=== PATIENT | male | born 1935 | race Caucasian/White ===

== ENCOUNTER → 2023-12-11 10:47 | Outpatient (REF) | payer MEDICARE, BC, SELFPAY ==
[2023-12-11 13:26] LABS: PSA, Total - Diagnostic 1.93 ng/ml (0.0-4.0)
== END ==
LOC: HWLAB 10:47
PROVIDERS: ATTENDING PHYSICIAN Specialist; FAMILY PHYSICIAN Internal Medicine; REFERRING PHYSICIAN Family Medicine
DX: C61 Malignant neoplasm of prostate (principal)
CPT/HCPCS: 36415; 84153

== ENCOUNTER 2023-12-24 18:58 | Emergency (ER) | payer MEDICARE, BC, SELFPAY ==
[2023-12-24 19:01] VITALS: BP 130/70
[2023-12-24 19:33] VITALS: BP 143/62
[2023-12-24 19:40] VITALS: BMI 28.5
[2023-12-24 19:47] LABS: % Basophils 0.4 % (0-2); % Eosinophils 1.1 % (0-6); % Immature Granulocytes 0.2 % (0-0.5); % Lymphocytes 14.4 % (20.5-51.1); % Monocytes 7.6 % (1.7-9.3); % Neutrophils 76.3 % (42.2-75.2); Absolute Eosinophils 0.1 10^3/uL (0-0.7); Absolute Lymphocytes 1.4 10^3/uL (1.2-3.4); Absolute Monocytes 0.8 10^3/uL (0.1-0.6); Absolute Neutrophils 7.6 10^3/uL (1.4-6.5); Hematocrit 37.1 % (39.0-52.0); Hemoglobin 12.9 g/dL (13.0-18.0); Mean Corp Hgb Conc. 34.8 g/dL (33.0-37.0); Mean Corpuscular Hgb 32.3 pg (27.0-31.0); Mean Corpuscular Volume 92.8 fL (80.0-94.0); Mean Platelet Volume 10.4 fL (7.4-10.4); Nucleated Red Blood Cells % 0 % (-); Platelet Count 223 10^3/uL (130-400); Red Cell Dist. Width 13.1 % (11.5-14.5); White Blood Cell Count 9.9 10^3/uL (4.8-10.8)
[2023-12-24 19:58] LABS: ALT (SGPT) 29 U/L (0-50); AST (SGOT) 35 U/L (17-59); Albumin 4.2 g/dl (3.5-5.0); Alkaline Phosphatase 109 U/L (38-126); Blood Urea Nitrogen 19 mg/dl (9-20); Calcium 9.3 mg/dl (8.4-10.2); Carbon Dioxide 23 mmol/L (22-30); Chloride 107 mmol/L (98-107); Estimated Creatinine Clearance 68 ml/min; Glucose 143 mg/dl (70-99); Potassium 4.4 mmol/L (3.5-5.1); Sodium 138 mmol/L (135-145); Total Bilirubin 0.5 mg/dl (0.2-1.3); Total Protein 7.3 g/dl (6.3-8.2); eGFR > 60.00
--- NOTE | 2023-12-24 19:59 | ED.GENMED ---
History of Present Illness
General
Chief Complaint: Weakness
Source: patient
Time Seen by Provider: 12/24/23 19:40
Travel History
Have you had any contact with someone who has COVID-19?: No
Do you have any symptoms of coronavirus? Fever > 100 degrees, chills, cough, shortness of breath, sore throat, loss of taste or smell, muscle aches, or headache?: No
History of Present Illness
History of Present Illness:
88-year-old male presents to the emergency room complaining of right knee and posterior leg discomfort. Patient was in his normal state of health up until (4 days ago). The day prior the patient did go to physical therapy. He was
receiving physical therapy due to some issues with balance. The next day began having pain in the posterior right knee particularly on the lateral aspect. He indicates that the most of the pain was over hamstring tendon. Pain increased over the
next 2 days. He was taking Tylenol for the discomfort. Today the patient noted the pain had improved but thought he was not able to put his full weight on the leg. Patient denies any numbness or tingling. He denies any right arm symptoms. No
headache. Patient does not take any oral anticoagulants but does take 81 mg of aspirin a day. He does not typically walk with a walker but had been today.
Past History
Past History
ED Past Medical History: CAD, Cancer (Prostate CA with radiation), HTN, Hypercholesterolemia and Other (Prostate CA with radiation, Hemorroids, kidney stones)
ED Past Surgical History: Appendectomy, Cardiac (Stent) and Urological (Lithotripsy)
Social History
Tobacco: Former smoker
Alcohol: Daily (Wine One glass)
Personal:
Living: with family
Employment: Retired
Family History
Family History: Hypertension
Phy Exam
Physical Exam
Physical Exam:
General: Awake, Alert, Oriented X3. No acute distress.
Vitals: unremarkable
Head: Atraumatic
Eyes: Pupils equal, EOMI
Throat: Airway intact, no exudates
Neck: Trachea midline
Lungs: Clear and equal b/l
Heart: Regular rate, no murmurs
Abd: Soft, Nontender, No pulsatile mass
Neuro: Cranial nerves intact, muscle strength equal bilaterally, cerebellar exam normal
Skin: Warm, dry, no rash
Extremities: pulses equal b/l, no edema.
Right knee has no effusion. There is no tenderness over the patella or the knee itself. Patient does have tenderness palpation over the lateral hamstring insertion. He is able extend his fully straight leg at the hip. The patella
tendon is intact.
Course
Orders/Labs/Results
Orders:
Orders
12/24/23 19:42
CMP [Comprehensive Metabolic Panel] Urgent
Complete Blood Count/With Diff Urgent
12/24/23 19:58
Knee, Right 4 or More Views [CR Knee- Right 4 Or More View*] Urgent
Comment:
Reason For Exam: r knee pain
Abnormal Lab Results
12/24/23
19:42
RBC 4.00 L 10^6/uL
(4.70-6.10)
Hgb 12.9 L g/dL
(13.0-18.0)
Hct 37.1 L %
(39.0-52.0)
MCH 32.3 H pg
(27.0-31.0)
Absolute Neuts (auto) 7.6 H 10^3/uL
(1.4-6.5)
Absolute Monos (auto) 0.8 H 10^3/uL
(0.1-0.6)
Neutrophils % 76.3 H %
(42.2-75.2)
Lymphocytes % 14.4 L %
(20.5-51.1)
Glucose 143 H mg/dl
(70-99)
12/24/23 19:42
12/24/23 19:42
Vital Signs
Initial and Last Documented VS:
Initial Vital Signs
Temp Pulse Resp BP Pulse Ox
97.4 F 98 24 130/70 95
12/24/23 19:01 12/24/23 19:01 12/24/23 19:01 12/24/23 19:01 12/24/23 19:01
Last Documented Vital Signs
Temp Pulse Resp BP Pulse Ox
97.4 F 79 22 128/59 96
12/24/23 19:01 12/24/23 20:45 12/24/23 20:45 12/24/23 20:00 12/24/23 20:31
MDM/Problems Addressed
Differential Diagnosis Includes:
Patella fracture, patellar tendon injury, joint effusion, tendinitis
MDM/Problems Addressed:
Physical exam seems to be most consistent with a tendinitis. X-ray shows no acute abnormality. There is no effusion. Patient was able to ambulate without much assistance. We did place a David wrap around the distal thigh and knee which did seem to
help. Patient stable for discharge home. Follow-up with orthopedics as an outpatient particularly if not better in a couple days.
*Radiology
Radiology exam reviewed: preliminary read by ED provider (Personally reviewed the patient's knee films. I see no acute abnormality though he does have chronic changes of osteoarthritis)
*Pulse Oximetry
Patient hypoxic: no
*Critical Care Note
Total Time (30-74mins, 75-104mins- exclusive of procedures): Not Applicable
Patient Management
Social determinants of health affecting care: Living situation
ED Attending Note
-
Portions of this chart may have been created with voice recognition software.� Occasional wrong word or��sound alike� substitutions may have occurred due to the inherent limitations of voice recognition software.
Discharge Plan
Departure
Patient Disposition: Home (Routine Discharge)
Date of Disposition: 12/24/23
Time of Disposition: 20:43
Patient with high blood pressure during this ER visit?: No
Discharge Problem:
Tendonitis
Instructions: Tendinopathy (DC)
Prescriptions:
No Action
ezetimibe 10 MG tablet
10 mg PO DAILY
omega-3 acid ethyl esters [Lovaza] 1 GM capsule
2 tab PO DAILY
Patient Comments:
pt does not know dose
dtyaoipu-ghhssq-adsc-betn-chit 1 CAP capsule
2 cap PO DAILY
aspirin [Aspir-Low] 81 MG tablet,delayed release (DR/EC)
81 mg PO QPM
metoprolol tartrate 25 MG tablet
12.5 mg PO QPM
lisinopril 10 MG tablet
10 mg PO DAILY
polyethylene glycol 3350 17 GRAMS powder in packet
17 grams PO DAILY 0RF
meclizine 25 MG tablet
25 mg PO Q8HPRN PRN (Reason: dizziness) Qty: 20 0RF
Referrals:
Nathan Su MD [Active] -
Elder Bray DO [Family Provider] -
Interventions
Interventions:
*Risk Screen - Suicide Last Done: 12/24/23 19:01
*General Assessment Last Done: 12/24/23 19:40
*Neglect/Abuse Screening Last Done: 12/24/23 19:01
ED- Fall Risk Assessment Last Done: 12/24/23 19:40
*ED COVID-19 Vaccine History Last Done: 12/24/23 19:40
*Nursing Disposition Last Done: 12/24/23 21:04
ED- Cardiac Assessment Last Done: 12/24/23 19:40
ED- Neurological Assessment Last Done: 12/24/23 20:00
ED- Pulmonary Assessment Last Done: 12/24/23 21:04
Discharge Date and Time
Discharge Date/Time: 12/24/23 21:04
Print Language: GERMAN
[2023-12-24 20:00] VITALS: BP 128/59
--- NOTE | 2023-12-24 20:30 | EDRN ---
Patient was able to ambulate to the restroom and back without difficulty, Dr. Herndon in to update patient about being discharged with sascha wrap on knee
== END 2023-12-24 21:04 | disposition home or self-care (01) ==
LOC: EMR 18:58
PROVIDERS: EMERGENCY PHYSICIAN Emergency Medicine; FAMILY PHYSICIAN Internal Medicine
DX: M76.9 Unspecified enthesopathy, lower limb, excluding foot (principal); Z87.891 Personal history of nicotine dependence
CPT/HCPCS: 99284; 73564; 80053; 85025

== ENCOUNTER 2023-12-26 11:08 | Inpatient (IN) | payer MEDICARE, BC, SELFPAY ==
[2023-12-25] VITALS (8 sets, daily range): BP systolic 113–156; BP diastolic 58–92; PULSE 85–105; BMI 28.4; BMI 28.0
--- NOTE | 2023-12-25 15:44 | ED.MUSCINJ ---
HPI-Injury
General
Chief Complaint: Fall
Source: patient
Exam Limitations: none
Time Seen by Provider: 12/25/23 15:30
Travel History
Have you had any contact with someone who has COVID-19?: No
Do you have any symptoms of coronavirus? Fever > 100 degrees, chills, cough, shortness of breath, sore throat, loss of taste or smell, muscle aches, or headache?: No
History of Present Illness-Injury
Initial Injury comments:
88 year old male presents via EMS from home after falls. He fell yesterday after being seen here for right leg pain. He states currently today the pain is better in his leg. He fell again today. He describes today he stood up from the table went
over to the sink to get his walker then fell backwards. He feels that he is in a fog. He also has been coughing. Has a history of hypertension hyperlipidemia. Is on a baby aspirin. Per EMS his noted some garbled speech earlier today. No
other complaints at this time. Patient denies any unilateral numbness or weakness.
Past History
Past History
ED Past Medical History: CAD, Cancer (Prostate CA with radiation), HTN, Hypercholesterolemia and Other (Prostate CA with radiation, Hemorroids, kidney stones)
ED Past Surgical History: Appendectomy, Cardiac (Stent) and Urological (Lithotripsy)
Social History
Tobacco: Former smoker
Alcohol: Daily (Wine One glass)
Personal:
Living: with family
Employment: Retired
Family History
Family History: Hypertension
Phy Exam
Physical Exam
Physical Exam:
General: Well-appearing male no acute respiratory distress
HEENT: Normocephalic atraumatic
Heart: Regular rate and rhythm no murmur
Lungs: Clear no wheeze or rales
Neurologic: Alert and oriented x 3 no facial asymmetry or slurred speech. No aphasia. No drift on exam finger-nose [id number] intact. Good sensation.
Extremities: No cyanosis or edema
Skin: Warm no rash or lesion
Injury Course
Orders/Labs/Results
Orders:
Orders
12/25/23 15:37
Complete Blood Count/With Diff Urgent
Comprehensive Metabolic Panel Urgent
12/25/23 15:40
Electrocardiogram (*1) Urgent
Reason for Study: Fatigue / Weakness
EKG- Treatment ONCE
12/25/23 15:43
CT Head W/o Iv Contrast Urgent
Comment:
Reason For Exam: weakness
Orthostatic VS- Treatment ONCE
CR Chest - 2 Views Urgent
Comment:
Reason For Exam: cough
12/25/23 15:50
COVID-19 Antigen Urgent
Source: Nasal Swab
Influenza A+B Rapid Molecular Urgent
JOVANI Source: Nasal Swab
Specimen Description:
Abnormal Lab Results
12/25/23 12/25/23
15:37 15:50
RBC 3.89 L 10^6/uL
(4.70-6.10)
Hgb 12.6 L g/dL
(13.0-18.0)
Hct 36.6 L %
(39.0-52.0)
MCV 94.1 H fL
(80.0-94.0)
MCH 32.4 H pg
(27.0-31.0)
Absolute Neuts (auto) 7.0 H 10^3/uL
(1.4-6.5)
Absolute Lymphs (auto) 1.0 L 10^3/uL
(1.2-3.4)
Absolute Monos (auto) 0.9 H 10^3/uL
(0.1-0.6)
Neutrophils % 78.0 H %
(42.2-75.2)
Lymphocytes % 11.4 L %
(20.5-51.1)
Monocytes % 9.9 H %
(1.7-9.3)
BUN 21 H mg/dl
(9-20)
Glucose 143 H mg/dl
(70-99)
AST 94 H U/L
(17-59)
SARS-CoV-2 Antigen Positive A
(Negative)
12/25/23 15:37
12/25/23 15:37
MDM/Problems Addressed
Differential Diagnosis Includes:
Falls with weakness. There was reported slurred speech however there is no evidence of such on exam currently. NIH of 0 currently. Patient has noted cognitive fog with the cough. Check CT of head, COVID and flu test chest x-ray pending and labs
for also check orthostatics given his mechanism of fall today
*Critical Care Note
Total Time (30-74mins, 75-104mins- exclusive of procedures): Not Applicable
Update Note
Update Note:
CT head negative chest x-ray shows bibasilar atelectasis. Labs reviewed without clinically significant finding. He did test positive for COVID. Family now in the room. He is fallen twice in 1 day he is very weak and unsteady at home. They
cannot manage him at home. Will admit to hospital for multiple falls weakness in the setting of COVID. May benefit from physical therapy evaluation
ED Attending Note
-
Portions of this chart may have been created with voice recognition software.� Occasional wrong word or��sound alike� substitutions may have occurred due to the inherent limitations of voice recognition software.
Discharge Plan
Departure
Patient Disposition: Admit
Date of Disposition: 12/25/23
Time of Disposition: 18:27
Admit to: Telemetry
Presentation/result/management discussed w/ accepting MD/DO: Hospitalist
Discharge Problem:
Weakness, COVID-19
Prescriptions:
No Action
ezetimibe 10 MG tablet
10 mg PO DAILY
omega-3 acid ethyl esters [Lovaza] 1 GM capsule
2 tab PO DAILY
Patient Comments:
pt does not know dose
jcjgjvxa-vxqotj-ccsc-betn-chit 1 CAP capsule
2 cap PO DAILY
aspirin [Aspir-Low] 81 MG tablet,delayed release (DR/EC)
81 mg PO QPM
metoprolol tartrate 25 MG tablet
12.5 mg PO QPM
lisinopril 10 MG tablet
10 mg PO DAILY
polyethylene glycol 3350 17 GRAMS powder in packet
17 grams PO DAILY 0RF
meclizine 25 MG tablet
25 mg PO Q8HPRN PRN (Reason: dizziness) Qty: 20 0RF
Referrals:
Elder Bray DO [Family Provider] -
Interventions
Interventions:
*Risk Screen - Suicide Last Done: 12/25/23 15:42
*General Assessment Last Done: 12/25/23 15:42
*ED COVID-19 Vaccine History Last Done: 12/25/23 15:42
ED-Musculoskeletal Assessment Last Done: 12/25/23 15:45
ED- Neurological Assessment Last Done: 12/25/23 15:45
ED-Skin Assessment Last Done: 12/25/23 15:45
Discharge Date and Time
Print Language: GREENLANDIC
[2023-12-25 15:47] LABS: % Basophils 0.3 % (0-2); % Eosinophils 0.2 % (0-6); % Immature Granulocytes 0.2 % (0-0.5); % Lymphocytes 11.4 % (20.5-51.1); % Monocytes 9.9 % (1.7-9.3); Absolute Monocytes 0.9 10^3/uL (0.1-0.6); Hematocrit 36.6 % (39.0-52.0); Hemoglobin 12.6 g/dL (13.0-18.0); Mean Corp Hgb Conc. 34.4 g/dL (33.0-37.0); Mean Corpuscular Hgb 32.4 pg (27.0-31.0); Mean Corpuscular Volume 94.1 fL (80.0-94.0); Mean Platelet Volume 10.4 fL (7.4-10.4); Nucleated Red Blood Cells % 0 % (-); Platelet Count 198 10^3/uL (130-400); Red Blood Cell Count 3.89 10^6/uL (4.70-6.10); Red Cell Dist. Width 13.2 % (11.5-14.5)
[2023-12-25 16:00] LABS: Alkaline Phosphatase 107 U/L (38-126); Blood Urea Nitrogen 21 mg/dl (9-20); Calcium 9.2 mg/dl (8.4-10.2); Carbon Dioxide 22 mmol/L (22-30); Chloride 106 mmol/L (98-107); Estimated Creatinine Clearance 61 ml/min; Glucose 143 mg/dl (70-99); Potassium 3.9 mmol/L (3.5-5.1); Sodium 137 mmol/L (135-145); eGFR > 60.00
[2023-12-25 16:01] LABS: ALT (SGPT) 42 U/L (0-50); AST (SGOT) 94 U/L (17-59); Albumin 4.3 g/dl (3.5-5.0); Total Bilirubin 0.6 mg/dl (0.2-1.3); Total Protein 7.4 g/dl (6.3-8.2)
[2023-12-25 16:21] LABS: COVID-19 Antigen Positive (Negative)
--- NOTE | 2023-12-25 19:11 | HPS.HSE ---
Family Physician
-
Family Physician: Elder Bray
Chief Complaint
-
fall
History of Present Illness
88-year-old male past medical history of prostate cancer status post radiation, CAD status post stent, hypertension, hypercholesteremia, kidney stones, presenting after having falls. He fell yesterday after coming here for right leg pain. He
states today the pain is better in his right leg. He fell again today hitting his right elbow. He feels that he is in a fog and feels off balance. He has had dry cough for the past 5 days. noticed some garbled speech earlier today. No
focal weakness, numbness or tingling. No shortness of breath's, sore throat or fever or nausea or vomiting or diarrhea. No sick contacts.
Medical History
Past Medical History
Past Medical History: Reports Other (prostate cancer status post radiation, CAD status post stent, hypertension, hypercholesteremia, kidney stones)
Past Surgical History: Reports Other (Appendectomy, Cardiac (Stent) and Urological (Lithotripsy))
Social History
Tobacco: Non-smoker
Alcohol: None
Drug: None
Family History
Family History: Not pertinent
Allergies / Home Medications
Allergies reflects when Allergies were last updated in [employer].
Home Medications with original date entered in [employer]
Allergy/Medication List:
Allergies
Allergy/AdvReac Type Severity Reaction Status Date / Time
oxycodone Allergy Unknown Verified 12/24/23 19:04
Allergies
Allergy/AdvReac Type Severity Reaction Status Date / Time
oxycodone Allergy Unknown Verified 12/24/23 19:04
Home Medications
ezetimibe 10 mg tablet 10 mg PO DAILY High cholesterol 02/25/11
omega-3 acid ethyl esters 1 gram capsule (Lovaza) 2 tab PO DAILY High cholesterol 02/25/11
aspirin 81 mg tablet,delayed release (Aspir-Low) 81 mg PO QPM Blood clot prevention/tx 07/11/13
gbomrxlj-ocuptx-iaxx-betn-chit capsule 2 cap PO DAILY Supplement 07/11/13
metoprolol tartrate 25 mg tablet 12.5 mg PO QPM Heart disease/condition 09/30/15
lisinopril 10 mg tablet 10 mg PO DAILY Heart disease/condition 09/26/20
meclizine 25 mg tablet 25 mg PO Q8HPRN PRN dizziness #20 tabs 09/28/20
polyethylene glycol 3350 17 gram oral powder packet 17 grams PO DAILY 09/28/20
Review of Systems
-
History Source: Patient
A 12 point ROS was completed and negative except as noted: Yes
Constitutional: Reports No Symptoms
EENT: Reports No Symptoms
Respiratory: Reports See HPI
Cardiac: Reports No Symptoms
Abdomen/GI: Reports No Symptoms
: Reports No Symptoms
Musculoskeletal: Reports No Symptoms
Skin: Reports No Symptoms
Neurological: Reports No Symptoms
Endocrine: Reports No Symptoms
Hematologic/Lymphatic: Reports No Symptoms
Psych: Reports No Symptoms
Physical Exam
Vital Signs
Vital Signs
Temp Pulse Resp BP Pulse Ox
98.9 F 90 17 152/78 96
12/25/23 15:33 12/25/23 18:45 12/25/23 18:45 12/25/23 18:05 12/25/23 18:05
Physical Exam
General: Well Developed, Well Nourished and No Apparent Distress
HEENT: NormoCephalic, Moist mucous membranes and Atraumatic
Respiratory: Clear
Cardiac: S1/S2 and Regular Rhythm; No Murmur or Rub
GI: Soft, Non Tender, Non Distended and Normal Bowel Sounds; No Organomegaly
Rectal: Deferred by Provider
Musculoskeletal: No Clubbing, No Cyanosis and No Edema
Skin: No Rash
Neuro: Nonfocal/grossly intact
Laboratory Results
-
12/25/23 15:37
12/25/23 15:37
Laboratory Results
Total Bilirubin 0.6 mg/dl (0.2-1.3) 12/25/23 15:37
AST 94 U/L (17-59) H 12/25/23 15:37
ALT 42 U/L (0-50) 12/25/23 15:37
Alkaline Phosphatase 107 U/L (38-126) 12/25/23 15:37
Data Reviewed
-
Lab Data: Labs Reviewed by me
Old Records: Reviewed
Impression/Plan
-
IMPRESSION:
PLAN:
# Ambulatory dysfunction/falls secondary to COVID, day 5
-[address] head shows no acute abnormality
-Chest x-ray shows bibasilar atelectasis
-Patient not hypoxic
-PT/OT
Prostate cancer status post radiation
CAD status post stent
-Continue aspirin
Essential hypertension
-Continue lisinopril, metoprolol
Hypercholesterolemia
-Continue Zetia
Kidney stones
Full code
DVT prophylaxis�heparin
Regular diet
--- NOTE | 2023-12-25 20:30 | PTCARENOTE ---
Received pt from ED into 2125. Patient able to stand and pivot to the bed. COVID +. AAOx3. VSS. Pt had sascha wrap around R knee, stated it has been on since last week. Removed by this RN. Abrasion to right knee. Trace b/l LE edema. Crackles heard at
bilateral bases. See assessment. Patient was placed on bed alarm due to confusion at times. Oriented pt to room, he is resting comfortably with call pritchard in reach.
[2023-12-25] MEDS: HEPARIN 5000 UNITS SC (20:36)
[2023-12-26 05:22] LABS: % Basophils 0.3 % (0-2); % Eosinophils 0.3 % (0-6); % Immature Granulocytes 0.3 % (0-0.5); % Monocytes 12.5 % (1.7-9.3); % Neutrophils 68.6 % (42.2-75.2); Absolute Lymphocytes 1.1 10^3/uL (1.2-3.4); Absolute Monocytes 0.7 10^3/uL (0.1-0.6); Hematocrit 35.1 % (39.0-52.0); Hemoglobin 11.9 g/dL (13.0-18.0); Mean Corp Hgb Conc. 33.9 g/dL (33.0-37.0); Mean Corpuscular Hgb 31.7 pg (27.0-31.0); Mean Corpuscular Volume 93.6 fL (80.0-94.0); Mean Platelet Volume 10.7 fL (7.4-10.4); Nucleated Red Blood Cells % 0 % (-); Platelet Count 179 10^3/uL (130-400); Red Blood Cell Count 3.75 10^6/uL (4.70-6.10); Red Cell Dist. Width 13.2 % (11.5-14.5); White Blood Cell Count 5.8 10^3/uL (4.8-10.8)
[2023-12-26 06:05] LABS: ALT (SGPT) 45 U/L (0-50); AST (SGOT) 125 U/L (17-59); Albumin 3.8 g/dl (3.5-5.0); Alkaline Phosphatase 96 U/L (38-126); Blood Urea Nitrogen 17 mg/dl (9-20); Carbon Dioxide 22 mmol/L (22-30); Chloride 105 mmol/L (98-107); Estimated Creatinine Clearance 68 ml/min; Glucose 126 mg/dl (70-99); Sodium 135 mmol/L (135-145); Total Bilirubin 0.4 mg/dl (0.2-1.3); Total Protein 6.6 g/dl (6.3-8.2); eGFR > 60.00
[2023-12-26 07:00] VITALS: BP 115/58
[2023-12-26] MEDS: ZESTRIL 10 MG PO (08:36)
[2023-12-26] MEDS: HEPARIN 5000 UNITS SC ×2 (08:36→20:23)
[2023-12-26] MEDS: PAXLOVID 2X150 MG-100 MG DOSE PACK 1 DOSE PO ×2 (13:23→20:23)
--- NOTE | 2023-12-26 14:13 | CM ---
Initial assessment completed with patient and who live in a 1 story house with no basement and 1 step to enter. [employer]OST patient was independent and drove, DME in home is RW, SPC, Quad cane, raised toilet seat and shower bars, no in-home services.
No prior psychiatric hospitalizations. Pharmacy is [facility] in [place] and PCP is Dr. Elder Bray. Discharge Plan of Care: SNF. [employer] list provided to . She will discuss with daughter and choose at least 6 preferences and call
CM with choices.
--- NOTE | 2023-12-26 14:37 | W.PN.HOSP.TC ---
Today's Communication/Plan
-
Paxlovid
PT assessment
Assessment / Plan
Assessment / Plan
Impression:
Presentation with generalized fatigue, weakness and falls at home
COVID-19 positive viral syndrome
Conditions prior to admission:
Prostate cancer status postradiation treatment
CAD status post stent.
Essential hypertension
Dyslipidemia
History of nephrolithiasis.
Plan:
Generalized fatigue and weakness, falls at home
Suspect secondary to COVID-19 infection
COVID-19 positive
Reports symptoms for over 1 to 2 days.
Stable respiratory status with no evidence of sepsis or pneumonia.
Given significant symptoms and patient age, will initiate treatment with Paxlovid for 5 days
Generalized fatigue and weakness
Ambulatory dysfunction
Assess with physical therapy
History of CAD
Denies any chest pain
Continue beta-ramirez, lisinopril, aspirin, Zetia.
Dyslipidemia
On Zetia
Anticipated Discharge: 24 - 48 hours
Subjective/Interval History
-
Date of Service: December 26, 2023
Objective Data
-
Labs:
Laboratory Results
12/26/23
04:36
WBC 5.8
Hgb 11.9 L
Hct 35.1 L
Plt Count 179
Sodium 135
Potassium 4.0
Chloride 105
Carbon Dioxide 22
BUN 17
Creatinine 0.8
Glucose 126 H
Calcium 9.0
Total Bilirubin 0.4
AST 125 H
ALT 45
Alkaline Phosphatase 96
Vital Signs:
Vital Signs
Temp Pulse Resp BP Pulse Ox
98.5 F 76 20 115/58 96
12/26/23 07:00 12/26/23 08:36 12/26/23 07:00 12/26/23 08:36 12/26/23 10:32
I&O
12/25/23 12/26/23 12/27/23
06:59 06:59 06:59
Intake Total 240 / 240
Output Total 225 / 225
Balance
Physical Exam
-
General: Well Developed and No Apparent Distress
HEENT: Normocephalic, Atraumatic and Moist Mucous Membranes
Respiratory: Clear to Auscultation
Cardiac: Regular Rhythm and S1/S2; Negative Murmur, Rub or Gallop
GI: Soft, Nontender, Nondistended and Normal Bowel Sounds; Negative Organomegaly
Rectal: Deferred by Provider
Musculoskeletal: No Clubbing, No Cyanosis and No Edema
Skin: Negative Rash
Neuro: Awake, Alert, Oriented, AO x 3 and Nonfocal/Grossly Intact
[2023-12-26 15:40] VITALS: BP 127/72
[2023-12-26] MEDS: LOPRESSOR 12.5 MG PO (17:11)
[2023-12-26] MEDS: ASPIR LOW (ENTERIC COATED) 81 MG PO (17:11)
[2023-12-26] MEDS: ZETIA 10 MG PO (17:11)
[2023-12-26 23:45] VITALS: BP 124/59
[2023-12-27 00:23] VITALS: BP 109/54; BP 124/59; BP 132/60; PULSE 76; PULSE 80
[2023-12-27 07:06] VITALS: BP 122/65; BP 122/66; BP 124/63; PULSE 59; PULSE 62; PULSE 76
[2023-12-27] MEDS: PAXLOVID 2X150 MG-100 MG DOSE PACK 1 DOSE PO ×2 (08:21→21:00)
[2023-12-27] MEDS: HEPARIN 5000 UNITS SC ×2 (08:21→21:00)
[2023-12-27] MEDS: ZESTRIL 10 MG PO (08:22)
[2023-12-27 15:05] VITALS: BP 157/66
--- NOTE | 2023-12-27 15:30 | W.PN.HOSP.TC ---
Today's Communication/Plan
-
Paxlovid
Supportive care
Physical therapy assessment
Disposition efforts with likely placement to rehab.
Assessment / Plan
Assessment / Plan
Impression:
Presentation with generalized fatigue, weakness and falls at home
COVID-19 positive viral syndrome
Conditions prior to admission:
Prostate cancer status postradiation treatment
CAD status post stent.
Essential hypertension
Dyslipidemia
History of nephrolithiasis.
Plan:
Generalized fatigue and weakness, falls at home
Suspect secondary to COVID-19 infection
COVID-19 positive
Reports symptoms for over 1 to 2 days.
Stable respiratory status with no evidence of sepsis or pneumonia.
Given significant symptoms and patient age, will initiate treatment with Paxlovid for 5 days
Generalized fatigue and weakness
Ambulatory dysfunction
Assess with physical therapy
History of CAD
Denies any chest pain
Continue beta-ramirez, lisinopril, aspirin, Zetia.
Dyslipidemia
On Zetia
Anticipated Discharge: 24 - 48 hours
Subjective/Interval History
-
Date of Service: December 27, 2023
Objective Data
-
Vital Signs:
Vital Signs
Temp Pulse Resp BP Pulse Ox
97.5 F 67 16 157/66 97
12/27/23 15:05 12/27/23 15:05 12/27/23 15:05 12/27/23 15:05 12/27/23 15:05
I&O
12/26/23 12/27/23 12/28/23
06:59 06:59 06:59
Intake Total 240 / 240 1440 / 1440
Output Total 225 / 225 5 / 5
Balance 15 15 1435 / 1435
Physical Exam
-
General: Well Developed and No Apparent Distress
HEENT: Normocephalic, Atraumatic and Moist Mucous Membranes
Respiratory: Clear to Auscultation
Cardiac: Regular Rhythm and S1/S2; Negative Murmur, Rub or Gallop
GI: Soft, Nontender, Nondistended and Normal Bowel Sounds; Negative Organomegaly
Rectal: Deferred by Provider
Musculoskeletal: No Clubbing, No Cyanosis and No Edema
Skin: Negative Rash
Neuro: Nonfocal/Grossly Intact
[2023-12-27] MEDS: ZETIA 10 MG PO (17:11)
[2023-12-27] MEDS: LOPRESSOR 12.5 MG PO (17:11)
[2023-12-27] MEDS: ASPIR LOW (ENTERIC COATED) 81 MG PO (17:11)
[2023-12-27 23:00] VITALS: BP 141/71
[2023-12-28 08:04] VITALS: BP 106/58
[2023-12-28] MEDS: HEPARIN 5000 UNITS SC ×2 (09:40→20:40)
[2023-12-28] MEDS: PAXLOVID 2X150 MG-100 MG DOSE PACK 1 DOSE PO ×2 (09:40→20:39)
[2023-12-28] MEDS: ZESTRIL 10 MG PO (09:40)
--- NOTE | 2023-12-28 14:36 | CM ---
Patient Dx with Covid 12/25/23. Therapy recommending SNF. Preferences received and referrals forwarded. Awaiting responses.
[2023-12-28 16:00] VITALS: BP 129/66
--- NOTE | 2023-12-28 16:32 | W.PN.HOSP.TC ---
Today's Communication/Plan
-
Stable respiratory status
Paxlovid
Supportive care
Physical therapy assessment
Placement to rehab.
Assessment / Plan
Assessment / Plan
Impression:
Presentation with generalized fatigue, weakness and falls at home
COVID-19 positive viral syndrome
Conditions prior to admission:
Prostate cancer status postradiation treatment
CAD status post stent.
Essential hypertension
Dyslipidemia
History of nephrolithiasis.
Plan:
Generalized fatigue and weakness, falls at home
Suspect secondary to COVID-19 infection
COVID-19 positive
Reports symptoms for over 1 to 2 days.
Stable respiratory status with no evidence of sepsis or pneumonia.
Given significant symptoms and patient age, will initiate treatment with Paxlovid for 5 days
Generalized fatigue and weakness
Ambulatory dysfunction
Assess with physical therapy
History of CAD
Denies any chest pain
Continue beta-ramirez, lisinopril, aspirin, Zetia.
Dyslipidemia
On Zetia
Anticipated Discharge: 24 - 48 hours
Subjective/Interval History
-
Date of Service: December 28, 2023
Objective Data
-
Vital Signs:
Vital Signs
Temp Pulse Resp BP Pulse Ox
97.8 F 63 20 106/58 96
12/28/23 08:04 12/28/23 09:40 12/28/23 08:04 12/28/23 09:40 12/28/23 08:04
I&O
12/27/23 12/28/23 12/29/23
06:59 06:59 06:59
Intake Total 1440 / 1440 840 / 840
Output Total 5 / 5
Balance 1435 / 1435 840 / 840
Physical Exam
-
General: Well Developed and No Apparent Distress
HEENT: Normocephalic, Atraumatic and Moist Mucous Membranes
Respiratory: Clear to Auscultation
Cardiac: Regular Rhythm and S1/S2; Negative Murmur, Rub or Gallop
GI: Soft, Nontender, Nondistended and Normal Bowel Sounds; Negative Organomegaly
Rectal: Deferred by Provider
Musculoskeletal: No Clubbing, No Cyanosis and No Edema
Skin: Negative Rash
Neuro: Nonfocal/Grossly Intact
[2023-12-28] MEDS: ZETIA 10 MG PO (17:36)
[2023-12-28] MEDS: LOPRESSOR 12.5 MG PO (17:36)
[2023-12-28] MEDS: ASPIR LOW (ENTERIC COATED) 81 MG PO (17:36)
[2023-12-28] MEDS: MIRALAX 17 GRAMS PO (18:39)
[2023-12-28 23:00] VITALS: BP 114/56
[2023-12-29 07:00] VITALS: BP 126/76
[2023-12-29] MEDS: PAXLOVID 2X150 MG-100 MG DOSE PACK 1 DOSE PO ×2 (08:36→21:00)
[2023-12-29] MEDS: ZESTRIL 10 MG PO (08:36)
[2023-12-29] MEDS: HEPARIN 5000 UNITS SC ×2 (08:37→20:59)
[2023-12-29 15:14] VITALS: BP 139/69
--- NOTE | 2023-12-29 15:24 | W.PN.HOSP.TC ---
Today's Communication/Plan
-
Acute COVID-19 syndrome with deconditioning and ambulatory dysfunction
Stable respiratory status
Medically cleared for placement to assisted facility ongoing physical therapy assessment.
Assessment / Plan
Assessment / Plan
Impression:
Presentation with generalized fatigue, weakness and falls at home
COVID-19 positive viral syndrome
Conditions prior to admission:
Prostate cancer status postradiation treatment
CAD status post stent.
Essential hypertension
Dyslipidemia
History of nephrolithiasis.
Plan:
Generalized fatigue and weakness, falls at home
Suspect secondary to COVID-19 infection
COVID-19 positive
Reports symptoms for over 1 to 2 days.
Stable respiratory status with no evidence of sepsis or pneumonia.
Given significant symptoms and patient age, will initiate treatment with Paxlovid for 5 days
Generalized fatigue and weakness
Ambulatory dysfunction
Assess with physical therapy
History of CAD
Denies any chest pain
Continue beta-ramirez, lisinopril, aspirin, Zetia.
Dyslipidemia
On Zetia
Anticipated Discharge: 24 - 48 hours
Subjective/Interval History
-
Date of Service: December 29, 2023
Objective Data
-
Vital Signs:
Vital Signs
Temp Pulse Resp BP Pulse Ox
98.7 F 69 17 139/69 97
12/29/23 15:14 12/29/23 15:14 12/29/23 15:14 12/29/23 15:14 12/29/23 15:14
I&O
12/28/23 12/29/23 12/30/23
06:59 06:59 06:59
Intake Total 840 / 840 1200 / 1200
Balance 840 / 840 1200 / 1200
Physical Exam
-
General: Well Developed and No Apparent Distress
HEENT: Normocephalic, Atraumatic and Moist Mucous Membranes
Respiratory: Clear to Auscultation
Cardiac: Regular Rhythm and S1/S2; Negative Murmur, Rub or Gallop
GI: Soft, Nontender, Nondistended and Normal Bowel Sounds; Negative Organomegaly
Rectal: Deferred by Provider
Musculoskeletal: No Clubbing, No Cyanosis and No Edema
Skin: Negative Rash
Neuro: Nonfocal/Grossly Intact
--- NOTE | 2023-12-29 16:57 | CM ---
Fatigue, weak, S/P falls. Covid + as of 12/24. Referrals forwarded for SNF as per therapy recommendation. Barrier to acceptance is Covid. Have accepting facilities after a 10 day quarantine. Will continue to find placement.
[2023-12-29] MEDS: LOPRESSOR 12.5 MG PO (17:46)
[2023-12-29] MEDS: ZETIA 10 MG PO (17:46)
[2023-12-29] MEDS: ASPIR LOW (ENTERIC COATED) 81 MG PO (17:46)
[2023-12-30 00:11] VITALS: BP 132/65
[2023-12-30 07:00] VITALS: BP 139/70
[2023-12-30] MEDS: ZESTRIL 10 MG PO (08:54)
[2023-12-30] MEDS: HEPARIN 5000 UNITS SC ×2 (08:55→20:42)
[2023-12-30] MEDS: PAXLOVID 2X150 MG-100 MG DOSE PACK 1 DOSE PO ×2 (09:00→21:03)
--- NOTE | 2023-12-30 09:15 | W.PN.HOSP.TC ---
Today's Communication/Plan
-
DC to rehab when bed available
Assessment / Plan
Assessment / Plan
Impression:
Presentation with generalized fatigue, weakness and falls at home
COVID-19 positive viral syndrome
Conditions prior to admission:
Prostate cancer status postradiation treatment
CAD status post stent.
Essential hypertension
Dyslipidemia
History of nephrolithiasis.
Plan:
Generalized fatigue and weakness, falls at home
Suspect secondary to COVID-19 infection
COVID-19 positive
Reports symptoms for over 1 to 2 days.
Remains Stable respiratory status with no evidence of sepsis or pneumonia.
Given significant symptoms and patient age, was initiated treatment with Paxlovid for 5 days
Generalized fatigue and weakness
Ambulatory dysfunction
History of CAD
Denies any chest pain
Continue beta-ramirez, lisinopril, aspirin, Zetia.
Dyslipidemia
On Zetia
PT recommends SNF
Await placement
Anticipated Discharge: Today
Subjective/Interval History
-
Date of Service: December 30, 2023
Voicing no specific complaints. Feels much better than 3 days ago. Regaining strength but still thinks needs to go to rehab.
No shortness of breath. No sore throat. No cough. No fever.
Tolerating diet.
Objective Data
-
Vital Signs:
Vital Signs
Temp Pulse Resp BP Pulse Ox
98.1 F 65 16 139/70 95
12/30/23 07:00 12/30/23 07:00 12/30/23 07:00 12/30/23 07:00 12/30/23 07:00
I&O
12/29/23 12/30/23 12/31/23
06:59 06:59 06:59
Intake Total 1200 / 1200 850 / 850
Balance 1200 / 1200 850 / 850
Review of Systems
-
Genitourinary: Denies Dysuria
Neuro: Denies Dizzy or Headache
Physical Exam
-
General: No Apparent Distress
HEENT: Moist Mucous Membranes
Respiratory: Clear to Auscultation
Cardiac: Regular Rhythm and S1/S2
Neuro: AO x 3
Psych: Calm
--- NOTE | 2023-12-30 09:18 | W.DS.TRANS ---
DC Summary - Flight Agent
-
Discharge Instructions:
Discharge Diagnosis/Procedures Acute COVID 19 infection without pneumonia
Diet Low Sodium
Activity As tolerated
Driving Restrictions As prior to admission
Other Services PT,OT
Instructions:
Stand-Alone Forms:
Changes to Home Medications: No
Discharge Medications:
DC Medications w/original date entered in [facility]
acetaminophen 325 mg tablet (Tylenol) 325 mg PO DAILYPRN PRN mild pain 12/25/23
aspirin 81 mg tablet,delayed release 81 mg PO QPM Blood Clot Prevention/Tx 12/25/23
ezetimibe 10 mg tablet 10 mg PO QPM High Cholesterol 12/25/23
lisinopril 10 mg tablet 10 mg PO DAILY Blood Pressure 12/25/23
metoprolol tartrate 25 mg tablet 12.5 mg PO QPM Blood Pressure 12/25/23
omega-3 acid ethyl esters 1 gram capsule 2 cap PO BID Supplement 12/25/23
polyethylene glycol 3350 17 gram oral powder packet (Miralax) 17 g PO DAILY PRN constipation 12/25/23
Home Medication Changes
Pending Results: No
--- NOTE | 2023-12-30 10:45 | CM ---
CM reviewed chart and noted dc order
Call with spouse to review dc planning
Pt denied all SNFs due to COVID+ status
Encouraged broad net of add'l SNF referrals
Spouse in agreement and referrals sent via [facility]-pending
TT/Dr Hyman re- spouse requesting pt re-tested for COVID
Discharge Disposition- SNF
[2023-12-30 15:00] VITALS: BP 163/74
[2023-12-30 16:14] VITALS: BP 128/62; BP 132/67; BP 163/74; PULSE 67; PULSE 68; PULSE 71
[2023-12-30] MEDS: LOPRESSOR 12.5 MG PO (17:42)
[2023-12-30] MEDS: ASPIR LOW (ENTERIC COATED) 81 MG PO (17:42)
[2023-12-30] MEDS: ZETIA 10 MG PO (17:42)
[2023-12-30 23:22] VITALS: BP 102/54
[2023-12-31 06:00] VITALS: BMI 27.5
[2023-12-31 07:00] VITALS: BP 135/63
[2023-12-31] MEDS: HEPARIN 5000 UNITS SC ×2 (08:52→19:50)
[2023-12-31] MEDS: ZESTRIL 10 MG PO (08:52)
[2023-12-31] MEDS: MIRALAX 17 GRAMS PO (09:15)
--- NOTE | 2023-12-31 11:51 | CM ---
CM reviewed chart and pt remains ready for dc
Per [facility] liaison, only SNFs with covid beds are [facility] and [facility]
Outreach to [facility] liaison/[facility] to determine SNF bed availability- awaiting response
Discharge Disposition- SNF
--- NOTE | 2023-12-31 13:09 | W.PN.HOSP.TC ---
Today's Communication/Plan
-
Ongoing dispo efforts
Assessment / Plan
Assessment / Plan
Impression:
Presentation with generalized fatigue, weakness and falls at home
COVID-19 positive viral syndrome
Conditions prior to admission:
Prostate cancer status postradiation treatment
CAD status post stent.
Essential hypertension
Dyslipidemia
History of nephrolithiasis.
Plan:
Generalized fatigue and weakness, falls at home
Suspect secondary to COVID-19 infection
COVID-19 positive
Reports symptoms for over 1 to 2 days.
Remains Stable respiratory status with no evidence of sepsis or pneumonia.
Given significant symptoms and patient age, was initiated treatment with Paxlovid for 5 days
Generalized fatigue and weakness
Ambulatory dysfunction
History of CAD
Denies any chest pain
Continue beta-ramirez, lisinopril, aspirin, Zetia.
Dyslipidemia
On Zetia
PT recommends SNF
Medically stable for DC
Anticipated Discharge: Within 24 hours
Subjective/Interval History
-
Date of Service: December 31, 2023
No events from overnight
Objective Data
-
Vital Signs:
Vital Signs
Temp Pulse Resp BP Pulse Ox
97.6 F 63 12 135/63 97
12/31/23 07:00 12/31/23 07:00 12/31/23 07:00 12/31/23 07:00 12/31/23 07:00
I&O
12/30/23 12/31/23 01/01/24
06:59 06:59 06:59
Intake Total 850 / 850 1660 / 1660
Balance 850 / 850 1660 / 1660
Review of Systems
-
Constitutional: Denies Fever
Respiratory: Denies Trouble Breathing
Cardiac: Denies Chest Pain
Abdomen/GI: Denies Nausea or Vomiting
Neuro: Denies Dizzy
Physical Exam
-
General: No Apparent Distress
HEENT: Moist Mucous Membranes
Respiratory: Clear to Auscultation
Cardiac: Regular Rhythm and S1/S2
Neuro: AO x 3
[2023-12-31 15:00] VITALS: BP 120/59
--- NOTE | 2023-12-31 15:53 | PTCARENOTE ---
pt continues on covid precautions, more alert and able to walk around the room, calling appropriately.
[2023-12-31 16:18] VITALS: BP 138/59; PULSE 72; O2SAT 93
[2023-12-31] MEDS: LOPRESSOR 12.5 MG PO (17:22)
[2023-12-31] MEDS: ZETIA 10 MG PO (17:22)
[2023-12-31] MEDS: ASPIR LOW (ENTERIC COATED) 81 MG PO (17:23)
[2023-12-31 23:22] VITALS: BP 125/64
[2024-01-01 08:01] VITALS: BP 134/62
[2024-01-01] MEDS: ZESTRIL 10 MG PO (08:04)
[2024-01-01] MEDS: HEPARIN 5000 UNITS SC ×2 (08:04→21:00)
[2024-01-01 08:13] VITALS: BP 125/70; BP 129/63; BP 134/62; PULSE 62; PULSE 64; PULSE 76
--- NOTE | 2024-01-01 14:13 | W.PN.HOSP.TC ---
Today's Communication/Plan
-
Placement
Physical therapy and supportive care.
Assessment / Plan
Assessment / Plan
Impression:
Presentation with generalized fatigue, weakness and falls at home
COVID-19 positive viral syndrome
Conditions prior to admission:
Prostate cancer status postradiation treatment
CAD status post stent.
Essential hypertension
Dyslipidemia
History of nephrolithiasis.
Plan:
Generalized fatigue and weakness, falls at home
Suspect secondary to COVID-19 infection
COVID-19 positive
Reports symptoms for over 1 to 2 days.
Remains Stable respiratory status with no evidence of sepsis or pneumonia.
Completed 5-day course of Paxlovid.
Generalized fatigue and weakness
Ambulatory dysfunction
History of CAD
Denies any chest pain
Continue beta-ramirez, lisinopril, aspirin, Zetia.
Dyslipidemia
On Zetia
PT recommends SNF
Medically stable for DC
Anticipated Discharge: Within 24 hours
Subjective/Interval History
-
Date of Service: January 01, 2024
Objective Data
-
Vital Signs:
Vital Signs
Temp Pulse Resp BP Pulse Ox
97.8 F 62 17 125/64 96
01/01/24 08:01 01/01/24 08:01 01/01/24 08:01 01/01/24 08:04 01/01/24 09:19
I&O
12/31/23 01/01/24 01/02/24
06:59 06:59 06:59
Intake Total 1659 / 1659
Balance 1659 / 1659
Physical Exam
-
General: Well Developed and No Apparent Distress
HEENT: Normocephalic, Atraumatic and Moist Mucous Membranes
Respiratory: Clear to Auscultation
Cardiac: Regular Rhythm and S1/S2; Negative Murmur, Rub or Gallop
GI: Soft, Nontender, Nondistended and Normal Bowel Sounds; Negative Organomegaly
Rectal: Deferred by Provider
Musculoskeletal: No Clubbing, No Cyanosis and No Edema
Skin: Negative Rash
Neuro: Nonfocal/Grossly Intact
[2024-01-01 15:00] VITALS: BP 143/62
[2024-01-01 17:05] VITALS: BP 102/62; PULSE 77; O2SAT 95
--- NOTE | 2024-01-01 17:22 | CM ---
Discharge Plan of Care: STR. Have interested facilities. Will follow-up. Covid barrier.
[2024-01-01] MEDS: ASPIR LOW (ENTERIC COATED) 81 MG PO (17:56)
[2024-01-01] MEDS: ZETIA 10 MG PO (17:56)
[2024-01-01] MEDS: LOPRESSOR 12.5 MG PO (17:59)
[2024-01-01 23:07] VITALS: BP 136/63
[2024-01-02 07:49] VITALS: BP 123/67
[2024-01-02] MEDS: ZESTRIL 10 MG PO (08:21)
[2024-01-02] MEDS: HEPARIN 5000 UNITS SC ×2 (08:22→21:00)
[2024-01-02 15:15] VITALS: BP 113/60
--- NOTE | 2024-01-02 15:51 | CM ---
Discharge Plan of Care: SNF. Referrals forwarded. Barrier-COVID.
[2024-01-02] MEDS: LOPRESSOR 12.5 MG PO (17:01)
[2024-01-02] MEDS: ZETIA 10 MG PO (17:01)
[2024-01-02] MEDS: ASPIR LOW (ENTERIC COATED) 81 MG PO (17:01)
--- NOTE | 2024-01-02 17:04 | W.PN.HOSP.TC ---
Today's Communication/Plan
-
Ongoing disposition efforts. Continue physical therapy.
Assessment / Plan
Assessment / Plan
Impression:
Presentation with generalized fatigue, weakness and falls at home
COVID-19 positive viral syndrome
Conditions prior to admission:
Prostate cancer status postradiation treatment
CAD status post stent.
Essential hypertension
Dyslipidemia
History of nephrolithiasis.
Plan:
Generalized fatigue and weakness, falls at home
Suspect secondary to COVID-19 infection
COVID-19 positive
Reports symptoms for over 1 to 2 days.
Remains Stable respiratory status with no evidence of sepsis or pneumonia.
Completed 5-day course of Paxlovid.
Generalized fatigue and weakness
Ambulatory dysfunction
History of CAD
Denies any chest pain
Continue beta-ramirez, lisinopril, aspirin, Zetia.
Dyslipidemia
On Zetia
PT recommends SNF
Medically stable for DC
Anticipated Discharge: 24 - 48 hours
Subjective/Interval History
-
Date of Service: January 02, 2024
Objective Data
-
Vital Signs:
Vital Signs
Temp Pulse Resp BP Pulse Ox
98.1 F 77 18 113/60 98
01/02/24 15:15 01/02/24 15:15 01/02/24 15:15 01/02/24 15:15 01/02/24 15:15
I&O
01/01/24 01/02/24 01/03/24
06:59 06:59 06:59
Intake Total 1899
Balance 1899
Physical Exam
-
General: Well Developed and No Apparent Distress
HEENT: Normocephalic, Atraumatic and Moist Mucous Membranes
Respiratory: Clear to Auscultation
Cardiac: Regular Rhythm and S1/S2; Negative Murmur, Rub or Gallop
GI: Soft, Nontender, Nondistended and Normal Bowel Sounds; Negative Organomegaly
Rectal: Deferred by Provider
Musculoskeletal: No Clubbing, No Cyanosis and No Edema
Skin: Negative Rash
Neuro: Nonfocal/Grossly Intact
[2024-01-02 23:05] VITALS: BP 108/44
[2024-01-03] MEDS: ZESTRIL 10 MG PO (07:55)
[2024-01-03] MEDS: HEPARIN 5000 UNITS SC (07:55)
--- NOTE | 2024-01-03 11:43 | CM ---
Patient has been medically cleared for discharge to home with [facility] PT/OT services. will transport home.
== END 2024-01-03 16:02 | disposition home health service (06) | DRG 178 ==
LOC: 2 NORTH 11:08
PROVIDERS: Physician Assistant; ADMITTING PHYSICIAN Hospitalist; ATTENDING PHYSICIAN Internal Medicine; EMERGENCY PHYSICIAN Emergency Medicine; FAMILY PHYSICIAN Internal Medicine
DX: U07.1 COVID-19 (principal); J98.11 Atelectasis; M79.604 Pain in right leg; W01.0XXA Fall on same level from slipping, tripping and stumbling without subsequent striking against object, initial encounter; Y93.01 Activity, walking, marching and hiking; Y92.000 Kitchen of unspecified non-institutional (private) residence as the place of occurrence of the external cause; I10 Essential (primary) hypertension; E78.00 Pure hypercholesterolemia, unspecified; R29.6 Repeated falls; I25.10 Atherosclerotic heart disease of native coronary artery without angina pectoris; Z85.46 Personal history of malignant neoplasm of prostate; Z87.442 Personal history of urinary calculi; Z92.3 Personal history of irradiation; Z95.5 Presence of coronary angioplasty implant and graft; Z87.891 Personal history of nicotine dependence; Z79.82 Long term (current) use of aspirin; Z88.5 Allergy status to narcotic agent
CPT/HCPCS: 70450; 71046; 73564; 80053; 85025; 87502; 87811; 93005; 97116; 97162; 97166; 97530; 99285

== ENCOUNTER → 2024-01-18 11:19 | Outpatient (REF) | payer MEDICARE, BC, SELFPAY ==
[2024-01-18 16:17] LABS: % Basophils 0.6 % (0-2); % Eosinophils 1.3 % (0-6); % Immature Granulocytes 0.2 % (0-0.5); % Lymphocytes 26.1 % (20.5-51.1); % Monocytes 6.3 % (1.7-9.3); % Neutrophils 65.5 % (42.2-75.2); Absolute Basophils 0.1 10^3/uL (0-0.2); Absolute Eosinophils 0.1 10^3/uL (0-0.7); Absolute Lymphocytes 2.7 10^3/uL (1.2-3.4); Absolute Monocytes 0.7 10^3/uL (0.1-0.6); Absolute Neutrophils 6.8 10^3/uL (1.4-6.5); Hematocrit 40.1 % (39.0-52.0); Hemoglobin 13.2 g/dL (13.0-18.0); Mean Corp Hgb Conc. 32.9 g/dL (33.0-37.0); Mean Corpuscular Hgb 32.3 pg (27.0-31.0); Mean Platelet Volume 11.5 fL (7.4-10.4); Nucleated Red Blood Cells % 0 % (-); Platelet Count 231 10^3/uL (130-400); Red Blood Cell Count 4.09 10^6/uL (4.70-6.10); Red Cell Dist. Width 13.2 % (11.5-14.5); White Blood Cell Count 10.5 10^3/uL (4.8-10.8)
[2024-01-18 16:23] LABS: ALT (SGPT) 22 U/L (0-50); AST (SGOT) 33 U/L (17-59); Albumin 4.3 g/dl (3.5-5.0); Alkaline Phosphatase 114 U/L (38-126); Blood Urea Nitrogen 16 mg/dl (9-20); Calcium 9.5 mg/dl (8.4-10.2); Carbon Dioxide 25 mmol/L (22-30); Chloride 105 mmol/L (98-107); Glucose 113 mg/dl (70-99); Potassium 4.7 mmol/L (3.5-5.1); Sodium 137 mmol/L (135-145); Total Bilirubin 0.5 mg/dl (0.2-1.3); Total Protein 7.2 g/dl (6.3-8.2); eGFR > 60.00
== END ==
LOC: HWLAB 11:19
PROVIDERS: ATTENDING PHYSICIAN Nurse Practitioner Family; FAMILY PHYSICIAN Internal Medicine
DX: Z09 Encounter for follow-up examination after completed treatment for conditions other than malignant neoplasm (principal); Z86.16 Personal history of COVID-19; Z99.89 Dependence on other enabling machines and devices; C61 Malignant neoplasm of prostate; E78.2 Mixed hyperlipidemia; R29.6 Repeated falls; R53.1 Weakness; R79.89 Other specified abnormal findings of blood chemistry
CPT/HCPCS: 36415; 80053; 85025

== ENCOUNTER → 2024-01-30 10:19 | Outpatient (REF) | payer MEDICARE, BC, SELFPAY ==
[2024-01-30 15:25] LABS: % Basophils 0.8 % (0-2); % Eosinophils 1.7 % (0-6); % Immature Granulocytes 0.1 % (0-0.5); % Lymphocytes 25.7 % (20.5-51.1); % Neutrophils 65.7 % (42.2-75.2); Absolute Basophils 0.1 10^3/uL (0-0.2); Absolute Eosinophils 0.2 10^3/uL (0-0.7); Absolute Lymphocytes 2.4 10^3/uL (1.2-3.4); Absolute Monocytes 0.6 10^3/uL (0.1-0.6); Absolute Neutrophils 6.1 10^3/uL (1.4-6.5); Hematocrit 38.9 % (39.0-52.0); Hemoglobin 12.8 g/dL (13.0-18.0); Mean Corp Hgb Conc. 32.9 g/dL (33.0-37.0); Mean Corpuscular Hgb 32.2 pg (27.0-31.0); Mean Corpuscular Volume 97.7 fL (80.0-94.0); Mean Platelet Volume 10.9 fL (7.4-10.4); Nucleated Red Blood Cells % 0 % (-); Platelet Count 270 10^3/uL (130-400); Red Blood Cell Count 3.98 10^6/uL (4.70-6.10); Red Cell Dist. Width 13.1 % (11.5-14.5); White Blood Cell Count 9.2 10^3/uL (4.8-10.8)
== END ==
LOC: HWLAB 10:19
PROVIDERS: ATTENDING PHYSICIAN Nurse Practitioner Family
DX: M79.672 Pain in left foot (principal)
CPT/HCPCS: 36415; 84550; 85025

== ENCOUNTER → 2024-02-05 11:49 | Outpatient (REF) | payer MEDICARE, BC, SELFPAY | LOC: HWRAD 11:49 | PROVIDERS: ATTENDING PHYSICIAN Nurse Practitioner Family; FAMILY PHYSICIAN Internal Medicine | DX: M79.672 Pain in left foot (principal) | CPT/HCPCS: 73630 ==

== ENCOUNTER → 2024-03-25 10:47 | Outpatient (REF) | payer MEDICARE, BC, SELFPAY ==
[2024-03-25 12:55] LABS: PSA, Total - Diagnostic 1.94 ng/ml (0.0-4.0)
== END ==
LOC: HWLAB 10:47
PROVIDERS: ATTENDING PHYSICIAN Specialist; FAMILY PHYSICIAN Internal Medicine
DX: C61 Malignant neoplasm of prostate (principal)
CPT/HCPCS: 36415; 84153

== ENCOUNTER → 2024-05-17 12:51 | Outpatient (REF) | payer MEDICARE, BC, SELFPAY ==
[2024-05-17 16:07] LABS: ALT (SGPT) 26 U/L (0-50); AST (SGOT) 43 U/L (17-59); Albumin 4.6 g/dl (3.5-5.0); Alkaline Phosphatase 124 U/L (38-126); Blood Urea Nitrogen 17 mg/dl (9-20); Calcium 9.5 mg/dl (8.4-10.2); Carbon Dioxide 24 mmol/L (22-30); Chloride 105 mmol/L (98-107); Glucose 104 mg/dl (70-99); HDL Cholesterol 38 mg/dl; LDL Cholesterol, Calculated 140 mg/dl; Potassium 5.1 mmol/L (3.5-5.1); Sodium 141 mmol/L (135-145); Total Bilirubin 0.6 mg/dl (0.2-1.3); Total Cholesterol 211 mg/dl (50-199); Total Protein 7.4 g/dl (6.3-8.2); Triglyceride 167 mg/dl (10-149); Uric Acid 7.3 mg/dl (3.5-8.5); Very Low Density Lipoprotein 33 mg/dl (0-30); eGFR > 60.00
[2024-05-17 16:47] LABS: % Basophils 0.7 % (0-2); % Eosinophils 1.5 % (0-6); % Immature Granulocytes 1.7 % (0-0.5); % Lymphocytes 27.7 % (20.5-51.1); % Monocytes 6.6 % (1.7-9.3); % Neutrophils 61.8 % (42.2-75.2); Absolute Basophils 0.1 10^3/uL (0-0.2); Absolute Eosinophils 0.1 10^3/uL (0-0.7); Absolute Immature Granulocytes 0.2 10^3/uL (0-0.05); Absolute Lymphocytes 2.5 10^3/uL (1.2-3.4); Absolute Monocytes 0.6 10^3/uL (0.1-0.6); Absolute Neutrophils 5.5 10^3/uL (1.4-6.5); Hematocrit 40.2 % (39.0-52.0); Hemoglobin 13.9 g/dL (13.0-18.0); Mean Corp Hgb Conc. 34.6 g/dL (33.0-37.0); Mean Corpuscular Hgb 32.4 pg (27.0-31.0); Mean Corpuscular Volume 93.7 fL (80.0-94.0); Mean Platelet Volume 11.3 fL (7.4-10.4); Nucleated Red Blood Cells % 0 % (-); Platelet Count 231 10^3/uL (130-400); Red Blood Cell Count 4.29 10^6/uL (4.70-6.10); White Blood Cell Count 8.9 10^3/uL (4.8-10.8)
== END ==
LOC: HWLAB 12:51
PROVIDERS: ATTENDING PHYSICIAN Internal Medicine; REFERRING PHYSICIAN Family Medicine
DX: Z87.39 Personal history of other diseases of the musculoskeletal system and connective tissue (principal); I10 Essential (primary) hypertension; E78.2 Mixed hyperlipidemia
CPT/HCPCS: 36415; 80053; 80061; 84550; 85025

== ENCOUNTER → 2024-06-06 11:57 | Outpatient (REF) | payer MEDICARE, BC, SELFPAY | LOC: HWRAD 11:57 | PROVIDERS: ATTENDING PHYSICIAN Nurse Practitioner Family; FAMILY PHYSICIAN Internal Medicine | DX: M25.561 Pain in right knee (principal); Z87.39 Personal history of other diseases of the musculoskeletal system and connective tissue | CPT/HCPCS: 73564 ==

== ENCOUNTER → 2024-06-10 10:44 | Outpatient (REF) | payer MEDICARE, BC, SELFPAY ==
[2024-06-10 15:43] LABS: ALT (SGPT) 40 U/L (0-50); AST (SGOT) 38 U/L (17-59); Albumin 4.7 g/dl (3.5-5.0); Alkaline Phosphatase 114 U/L (38-126); Blood Urea Nitrogen 33 mg/dl (9-20); Calcium 10.2 mg/dl (8.4-10.2); Carbon Dioxide 28 mmol/L (22-30); Chloride 101 mmol/L (98-107); Glucose 108 mg/dl (70-99); Potassium 5.2 mmol/L (3.5-5.1); Sodium 142 mmol/L (135-145); Total Bilirubin 0.6 mg/dl (0.2-1.3); Total Protein 7.8 g/dl (6.3-8.2); eGFR > 60.00
[2024-06-10 20:35] LABS: PSA, Total - Diagnostic 1.94 ng/ml (0.0-4.0)
[2024-06-10 20:37] LABS: Testosterone, Total < 4.9 ng/dl (72-623)
== END ==
LOC: HWLAB 10:44
PROVIDERS: ATTENDING PHYSICIAN Specialist; FAMILY PHYSICIAN Internal Medicine
DX: C61 Malignant neoplasm of prostate (principal)
CPT/HCPCS: 36415; 80053; 84153; 84403

== ENCOUNTER 2024-06-18 18:37 | Emergency (ER) | payer MEDICARE, BC, SELFPAY ==
[2024-06-18 18:38] VITALS: BMI 26.9
[2024-06-18 18:41] VITALS: BP 158/70
[2024-06-18 20:00] VITALS: BP 127/62
[2024-06-18 21:00] VITALS: BP 109/57
--- NOTE | 2024-06-18 22:23 | ED.GENMED ---
History of Present Illness
General
Chief Complaint: Musculo-Skeletal Complaint
Source: patient and spouse
Exam Limitations: none
Time Seen by Provider: 06/18/24 21:06
Nursing documentation reviewed up to this point in time: agreed with
History of Present Illness
History of Present Illness:
89-year-old male past medical history of heart disease hypertension hyperlipidemia presenting to the emergency department today with concerns of left-sided hip discomfort that started when he was putting his pant legs on. Pains only with ambulation
and weightbearing denies any numbness weakness or additional concerns otherwise.
Past History
Past History
ED Past Medical History: CAD, Cancer (Prostate CA with radiation), HTN, Hypercholesterolemia and Other (Prostate CA with radiation, Hemorroids, kidney stones)
ED Past Surgical History: Appendectomy, Cardiac (Stent) and Urological (Lithotripsy)
Social History
Tobacco: Former smoker
Alcohol: Daily ([employer] glass)
Personal:
Living: with family
Employment: Retired
Family History
Family History: Hypertension
Review of Systems
Review of Systems
Allergies reviewed?: Yes
All Other Systems: ROS reviewed and negative except as documented in HPI and ROS
Phy Exam
Physical Exam
Physical Exam:
GENERAL: Alert , in no apparent distress
EYE: pupils equal and reactive
NECK: Supple, no significant adenopathy.
ENT: o/p clr, mmm.
CARDIAC: Regular rate and rhythm .
LUNGS: Clear breath sounds bilaterally, no acute respiratory distress, no wheezes/rales/rhonchi
ABDOMEN: Soft, without focal tenderness, no r/g, no cvat
NEUROLOGICAL: Alert and oriented, no focal neuro deficits
SKIN: Warm and dry, skin intact.
MUSCULOSKELETAL: No edema, well perfused.
PSYCH: Normal and appropriate interaction.
Course
Orders/Labs/Results
Orders:
Orders
06/18/24 21:06
Hip, Left 2-3 Views [CR Hip - LT w/wo Pel 2-3 Vw*] Urgent
Comment:
Reason For Exam: Left hip pain
Include a pelvis x-ray?: Yes
06/18/24 22:16
Acetaminophen [Tylenol] 1,000 mg PO NOW STA
Ketorolac [Toradol] 15 mg IM NOW STA
Vital Signs
Initial and Last Documented VS:
Initial Vital Signs
Temp Pulse Resp BP Pulse Ox
98.5 F 67 18 158/70 98
06/18/24 18:41 06/18/24 18:41 06/18/24 18:41 06/18/24 18:41 06/18/24 18:41
Last Documented Vital Signs
Temp Pulse Resp BP Pulse Ox
98.5 F 67 20 109/57 97
06/18/24 18:41 06/18/24 20:00 06/18/24 20:00 06/18/24 21:00 06/18/24 20:00
MDM/Problems Addressed
MDM/Problems Addressed:
89-year-old male presenting to the emergency department today with concerns of left-sided hip discomfort that started abruptly when putting his pants on earlier in the day. Pain mainly with ambulation and weightbearing at this point no pain when
resting. No redness or warmth no signs of infection. Normal neurovascular evaluation. X-ray without acute abnormalities. Patient with likely strain to the left hip. Plan for symptomatic treatment and orthopedic follow-up as needed.
*Critical Care Note
Total Time (30-74mins, 75-104mins- exclusive of procedures): Not Applicable
ED Attending Note
-
Portions of this chart may have been created with voice recognition software.� Occasional wrong word or��sound alike� substitutions may have occurred due to the inherent limitations of voice recognition software.
Discharge Plan
Departure
Patient Disposition: Home (Routine Discharge)
Date of Disposition: 06/18/24
Time of Disposition: 22:39
Patient with high blood pressure during this ER visit?: No
Condition: Good
Covid-19: Not Applicable
Discharge Problem:
Acute pain of left hip
Instructions: Sprain (DC)
Prescriptions:
No Action
acetaminophen [Tylenol] 325 mg Tablet
325 mg PO DAILYPRN PRN (Reason: mild pain)
polyethylene glycol 3350 [Miralax] 17 gram Powder In Packet
17 g PO DAILY PRN (Reason: constipation)
aspirin 81 mg Tablet,Delayed Release (Dr/Ec)
81 mg PO QPM
lisinopril 10 mg Tablet
10 mg PO DAILY
ezetimibe 10 mg Tablet
10 mg PO QPM
metoprolol tartrate 25 mg Tablet
12.5 mg PO QPM
omega-3 acid ethyl esters 1 gram Capsule
2 cap PO BID
Referrals:
Dillon Estrada MD [Active] - Follow up in 5-7 days
Elder Bray DO [Family Provider] -
Activity Restrictions/Additional Instructions:
You came to the emergency department today with concerns of hip discomfort. Your x-ray did not show any acute abnormalities. Please follow closely with orthopedics as needed. Return to the emergency department for any worsening, new or concerning
symptoms.
Interventions
Interventions:
*Risk Screen - Suicide Last Done: 06/18/24 18:41
*General Assessment Last Done: 06/18/24 18:41
*Neglect/Abuse Screening Last Done: 06/18/24 18:41
*ED COVID-19 Vaccine History Last Done: 06/18/24 18:41
ED-Musculoskeletal Assessment Last Done: 06/18/24 21:45
Discharge Date and Time
Print Language: TRISTANIAN
[2024-06-18] MEDS: TORADOL 15 MG IM (22:37)
[2024-06-18] MEDS: TYLENOL 1000 MG PO (22:38)
[2024-06-18 22:42] VITALS: BP 129/61
== END 2024-06-18 23:00 | disposition home or self-care (01) ==
LOC: EMR 18:37
PROVIDERS: EMERGENCY PHYSICIAN Emergency Medicine; FAMILY PHYSICIAN Internal Medicine
DX: M25.552 Pain in left hip (principal); I11.0 Hypertensive heart disease with heart failure; I50.9 Heart failure, unspecified; E78.00 Pure hypercholesterolemia, unspecified; I25.10 Atherosclerotic heart disease of native coronary artery without angina pectoris; Z82.49 Family history of ischemic heart disease and other diseases of the circulatory system; Z85.46 Personal history of malignant neoplasm of prostate; Z87.442 Personal history of urinary calculi; Z87.891 Personal history of nicotine dependence; Z90.49 Acquired absence of other specified parts of digestive tract; Z95.5 Presence of coronary angioplasty implant and graft
CPT/HCPCS: 99283; 73502

== ENCOUNTER → 2024-09-24 13:25 | Outpatient (REF) | payer MEDICARE, BC, SELFPAY ==
[2024-09-24 17:02] LABS: PSA, Total - Diagnostic 2.07 ng/ml (0.0-4.0)
== END ==
LOC: HWLAB 13:25
PROVIDERS: ATTENDING PHYSICIAN Specialist; FAMILY PHYSICIAN Nurse Practitioner Family
DX: C61 Malignant neoplasm of prostate (principal); M25.561 Pain in right knee
CPT/HCPCS: 36415; 73564; 84153

== ENCOUNTER → 2024-11-22 11:44 | Outpatient (REF) | payer MEDICARE, BC, SELFPAY ==
[2024-11-22 15:19] LABS: % Basophils 1.1 % (0-2); % Immature Granulocytes 0.3 % (0-0.5); % Lymphocytes 34.6 % (20.5-51.1); % Monocytes 5.9 % (1.7-9.3); % Neutrophils 56.1 % (42.2-75.2); Absolute Basophils 0.1 10^3/uL (0-0.2); Absolute Eosinophils 0.1 10^3/uL (0-0.7); Absolute Lymphocytes 2.5 10^3/uL (1.2-3.4); Absolute Monocytes 0.4 10^3/uL (0.1-0.6); Hematocrit 42.5 % (39.0-52.0); Mean Corp Hgb Conc. 32.9 g/dL (33.0-37.0); Mean Corpuscular Hgb 31.9 pg (27.0-31.0); Mean Corpuscular Volume 96.8 fL (80.0-94.0); Mean Platelet Volume 10.9 fL (7.4-10.4); Nucleated Red Blood Cells % 0 % (-); Platelet Count 240 10^3/uL (130-400); Red Blood Cell Count 4.39 10^6/uL (4.70-6.10); Red Cell Dist. Width 13.2 % (11.5-14.5); White Blood Cell Count 7.1 10^3/uL (4.8-10.8)
[2024-11-22 15:27] LABS: ALT (SGPT) 29 U/L (0-50); AST (SGOT) 42 U/L (17-59); Albumin 4.3 g/dl (3.5-5.0); Alkaline Phosphatase 125 U/L (38-126); Blood Urea Nitrogen 19 mg/dl (9-20); Calcium 9.6 mg/dl (8.4-10.2); Carbon Dioxide 29 mmol/L (22-30); Chloride 104 mmol/L (98-107); Glucose 109 mg/dl (70-99); Potassium 4.7 mmol/L (3.5-5.1); Sodium 140 mmol/L (135-145); Total Bilirubin 0.6 mg/dl (0.2-1.3); Total Protein 7.2 g/dl (6.3-8.2); Uric Acid 7.6 mg/dl (3.5-8.5); eGFR > 60.00
== END ==
LOC: HWLAB 11:44
PROVIDERS: ATTENDING PHYSICIAN Internal Medicine
DX: I10 Essential (primary) hypertension (principal); Z87.39 Personal history of other diseases of the musculoskeletal system and connective tissue
CPT/HCPCS: 36415; 80053; 84550; 85025

== ENCOUNTER → 2024-12-12 11:25 | Outpatient (REF) | payer MEDICARE, BC, SELFPAY ==
[2024-12-12 16:48] LABS: PSA, Total - Diagnostic 2.71 ng/ml (0.0-4.0)
== END ==
LOC: HWLAB 11:25
PROVIDERS: ATTENDING PHYSICIAN Specialist; FAMILY PHYSICIAN Internal Medicine
DX: C61 Malignant neoplasm of prostate (principal)
CPT/HCPCS: 36415; 84153

== ENCOUNTER → 2025-06-13 12:07 | Outpatient (REF) | payer MEDICARE, BC, SELFPAY ==
[2025-06-13 16:30] LABS: PSA, Total - Diagnostic 4.00 ng/ml (0.0-4.0)
== END ==
LOC: HWLAB 12:07
PROVIDERS: ATTENDING PHYSICIAN Specialist; FAMILY PHYSICIAN Internal Medicine
DX: C61 Malignant neoplasm of prostate (principal)
CPT/HCPCS: 36415; 84153

== ENCOUNTER → 2025-07-30 09:31 | Outpatient (REF) | payer MEDICARE, BC, SELFPAY ==
[2025-07-30 12:49] LABS: ALT (SGPT) 26 U/L (0-50); AST (SGOT) 38 U/L (17-59); Albumin 4.6 g/dl (3.5-5.0); Alkaline Phosphatase 110 U/L (38-126); Blood Urea Nitrogen 19 mg/dl (9-20); Calcium 9.6 mg/dl (8.4-10.2); Carbon Dioxide 28 mmol/L (22-30); Chloride 106 mmol/L (98-107); Glucose 113 mg/dl (70-99); HDL Cholesterol 37 mg/dl; LDL Cholesterol, Calculated 158 mg/dl; Potassium 4.5 mmol/L (3.5-5.1); Sodium 138 mmol/L (135-145); Total Protein 7.9 g/dl (6.3-8.2); Very Low Density Lipoprotein 48 mg/dl (0-30); eGFR > 60.00
== END ==
LOC: HWRCS 09:31
PROVIDERS: ATTENDING PHYSICIAN Internal Medicine Cardiovascular Disease; FAMILY PHYSICIAN Internal Medicine
DX: R06.02 Shortness of breath (principal); E78.2 Mixed hyperlipidemia
CPT/HCPCS: 36415; 80053; 80061; 93306